=== PATIENT | male | born 1950 | race Caucasian/White ===

== ENCOUNTER → 2017-11-09 | Outpatient (CLI) | payer MEDICARE ==
[~2017-11-09] MED LIST: ATOR-1 PO; ATOR20TA22 PO; ATOR40TA69 PO; AZIT-1 PO; CALC200T27 PO; CHOL200038 PO; CHOL500025 PO; CRAN200C5 PO; DIPH-911 PO; FLUT16SP19 NS; FLUT16SP20 NS; GLUC-198 PO; HYDR-385 PO; HYDR200T42 PO; LEVO-85 PO; METH500T6 PO; MULT-27 PO; MULT1CAP41 PO; MULT1TAB54 PO; MYCO500T28 PO; NIAC50TA13 PO; OMEG300C PO; OMEG500C7 PO; OMEP-114 PO; PRED20TA6 PO; ROS10 PO; ROSU20TA13 PO; SULF-197 PO; TRAM-420 PO; [UNRECOGNIZED DRUG - OTHER] PO
[2017-11-09 16:36] LABS: PLATELET COUNT, AUTOMATED 182 K/uL (150-450)
== END ==
LOC: LAB 16:22
PROVIDERS: ATTEND Physician Assistant Medical
DX: M05.79 Rheumatoid arthritis with rheumatoid factor of multiple sites without organ or systems involvement (principal); Z79.899 Other long term (current) drug therapy; M33.20 Polymyositis, organ involvement unspecified
CPT/HCPCS: 36415; 82040; 82247; 82310; 82374; 82435; 82565; 82947; 84075; 84132; 84155; 84295; 84450; 84460; 84520; 85025; 85651; 86140

== ENCOUNTER → 2017-12-14 | Outpatient (CLI) | payer MEDICARE ==
[~2017-12-14] MED LIST changes: +BENZ100C4 PO; +RIT100I IV
== END ==
LOC: LAB 09:53
PROVIDERS: ATTEND Emergency Medicine
DX: Z12.5 Encounter for screening for malignant neoplasm of prostate (principal); E78.5 Hyperlipidemia, unspecified; E55.9 Vitamin D deficiency, unspecified
CPT/HCPCS: 36415; 82306; 82465; 83718; 84153; 84478

== ENCOUNTER → 2017-12-14 | Outpatient (CLI) | payer MEDICARE ==
[2017-12-14 10:24] LABS: PLATELET COUNT, AUTOMATED 220 K/uL (150-450)
== END ==
LOC: LAB 09:55
PROVIDERS: ATTEND Physician Assistant Medical
DX: M05.79 Rheumatoid arthritis with rheumatoid factor of multiple sites without organ or systems involvement (principal); M33.20 Polymyositis, organ involvement unspecified; Z79.899 Other long term (current) drug therapy
CPT/HCPCS: 36415; 82040; 82247; 82310; 82374; 82435; 82565; 82947; 84075; 84132; 84155; 84295; 84450; 84460; 84520; 85025; 85651; 86140

== ENCOUNTER → 2018-02-27 | Outpatient (CLI) | payer MEDICARE ==
[2018-02-27 16:04] LABS: PLATELET COUNT, AUTOMATED 204 K/uL (150-450)
== END ==
LOC: LAB 15:46
PROVIDERS: ATTEND Physician Assistant Medical
DX: M05.79 Rheumatoid arthritis with rheumatoid factor of multiple sites without organ or systems involvement (principal); Z79.899 Other long term (current) drug therapy; M33.20 Polymyositis, organ involvement unspecified
CPT/HCPCS: 36415; 82040; 82247; 82310; 82374; 82435; 82565; 82947; 84075; 84132; 84155; 84295; 84450; 84460; 84520; 85025; 85651; 86140

== ENCOUNTER → 2018-05-07 | Outpatient (CLI) | payer MEDICARE ==
[~2018-05-07] MED LIST changes: -ROSU20TA13 PO; +ROSU20TA5 PO
[2018-05-07 08:47] LABS: PLATELET COUNT, AUTOMATED 190 K/uL (150-450)
== END ==
LOC: LAB 08:32
PROVIDERS: ATTEND Physician Assistant Medical
DX: M05.79 Rheumatoid arthritis with rheumatoid factor of multiple sites without organ or systems involvement (principal); M33.20 Polymyositis, organ involvement unspecified; Z79.899 Other long term (current) drug therapy
CPT/HCPCS: 36415; 82040; 82247; 82310; 82374; 82435; 82565; 82947; 84075; 84132; 84155; 84295; 84450; 84460; 84520; 85025; 85651; 86140

== ENCOUNTER → 2018-06-14 | Outpatient (CLI) | payer MEDICARE | LOC: RESP 01:12 | PROVIDERS: ATTEND Internal Medicine | DX: J98.4 Other disorders of lung (principal) | CPT/HCPCS: 94060; 94726; 94729 ==

== ENCOUNTER → 2018-06-28 | Outpatient (CLI) | payer MEDICARE ==
--- NOTE | 2018-06-28 17:17 | RADIOLOGY IMAGING REPORT ---
FACILITY: [facility] PATIENT NAME: Chai Santiago : 1950 MR: [id number] V: [id number] EXAM DATE: ORDERING PHYSICIAN: FELICITY MALDONADO TECHNOLOGIST: [place] [facility] [place] Patient: Chai Santiago : 1950 Visit/Account:[id number] Date of Sevice: 06/28/2018 CHEST W/O CONTRAST Provided history: Organizing pneumonia Additional pertinent history: none TECHNIQUE: Spiral scan was obtained from the lower neck through the lung bases without intravenous co ntrast. Source images were reformatted in the coronal and sagittal planes. Additional series performed today: none One of the following dose optimization techniques was utilized in the performance of this exam: Autom ated exposure control; adjustment of the mA and/or kV according to the patient's size; or use of an i terative reconstruction technique. Specific details can be referenced in the facility's radiology CT exam operational policy. COMPARISON STUDIES: CT chest 05/02/14 FINDINGS: Lungs / pleura / wali: Multifocal subpleural patchy areas of groundglass attenuation prior study sharp ve nearly fully cleared on the current exam. Residual is of lower attenuation and more reticular in n ature. At many sites, I can appreciate some subpleural sparing. Patchy confluent density on the prior study in the lung bases has resolved as well. There is moderate residual traction bronchiectasis both posterior lung bases and there is some reticulation in the sub pleural margin again with sparing directly deep to the pleura. There is no honeycombing. Additional b ronchiectasis noted in the right middle lobe, mildly progressive from prior. No significant peribronchovascular thickening. There is no hilar or mediastinal adenopathy. No pleural thickening or fluid. No esophageal dilation. Small hiatal hernia noted. Lower neck: negative Mediastinum: negative Heart / pericardium: negative Vessels: Moderate proximal and mid LAD calcification. Lymph nodes: negative Body wall: negative Upper abdomen: negative Bones: negative IMPRESSION: 1. Although the study is not performed as a high-resolution technique, it is sufficient to demonstrat e evidence of interstitial lung disease. The pattern is more consistent with NSIP then UIP. Appearanc e of the previous study with suggest [employer] which is now improved. 2. Bronchiectasis both lung bases and right middle lobe is progressive from prior. Report Dictated By: Raji Gomez MD at 06/28/2018 5:03 PM Report E-Signed By: Raji Gomez MD at 06/28/2018 5:13 PM WSN:[id number]
== END ==
LOC: CT 04:00
PROVIDERS: ATTEND Internal Medicine
DX: J84.89 Other specified interstitial pulmonary diseases (principal)
CPT/HCPCS: 71250

== ENCOUNTER → 2018-07-08 | Outpatient (CLI) | payer MEDICARE ==
[2018-07-08 12:02] LABS: PLATELET COUNT, AUTOMATED 183 K/uL (150-450)
== END ==
LOC: LAB 11:40
PROVIDERS: ATTEND Physician Assistant Medical
DX: Z11.1 Encounter for screening for respiratory tuberculosis (principal); M05.79 Rheumatoid arthritis with rheumatoid factor of multiple sites without organ or systems involvement; M33.20 Polymyositis, organ involvement unspecified; Z79.899 Other long term (current) drug therapy
CPT/HCPCS: 36415; 82040; 82247; 82310; 82374; 82435; 82565; 82947; 84075; 84132; 84155; 84295; 84450; 84460; 84520; 85025; 85651; 86140; 86480

== ENCOUNTER → 2018-10-28 | Outpatient (CLI) | payer MEDICARE ==
--- NOTE | 2018-10-28 16:28 | RADIOLOGY IMAGING REPORT ---
FACILITY: [facility] PATIENT NAME: Chai Santiago : 1950 MR: [id number] V: [id number] EXAM DATE: ORDERING PHYSICIAN: MARYJANE RASMUSSEN TECHNOLOGIST: Location: [facility] Patient: Chai Santiago : 1950 Visit/Account:[id number] Date of Sevice: 10/28/2018 CHEST PA LAT History: Patient reports no chest pain. "heard something in the lungs" FINDINGS: Comparison studies: Comparison radiograph 07/20/2015 Tubes and Lines: None. Lungs and pleura: There is a left basilar interstitial opacities improved from 2015. Right lung un remarkable. Mediastinum: normal. Cardiac silhouette: normal . Osseous structures: Unremarkable for age . IMPRESSION: Nonspecific left basilar atelectasis, scar, or early pneumonia. Report Dictated By: Luis Crane MD at 10/28/2018 4:22 PM Report E-Signed By: Luis Crane MD at 10/28/2018 4:24 PM WSN:[email or web address] [id number]
== END ==
LOC: RAD 15:35
PROVIDERS: ATTEND Technician/Technologist Ophthalmic
DX: J98.11 Atelectasis (principal); J18.9 Pneumonia, unspecified organism
CPT/HCPCS: 71046

== ENCOUNTER → 2018-12-23 | Outpatient (CLI) | payer MEDICARE ==
[2018-12-23 16:23] LABS: PLATELET COUNT, AUTOMATED 196 K/uL (150-450)
[2018-12-23 16:39] LABS: LDL CHOLESTEROL 38 mg/dl
== END ==
LOC: LAB 15:54
PROVIDERS: ATTEND Emergency Medicine
DX: E78.5 Hyperlipidemia, unspecified (principal)
CPT/HCPCS: 36415; 82306; 85025; G0103; 82040; 82247; 82310; 82374; 82435; 82465; 82565; 82947; 83718; 84075; 84132; 84153; 84155; 84295; 84450; 84460; 84478; 84520

== ENCOUNTER → 2018-12-23 | Outpatient (REF) | payer MEDICARE | LOC: ZZSENDIN 17:06 | PROVIDERS: ATTEND Physician Assistant Medical | DX: M05.79 Rheumatoid arthritis with rheumatoid factor of multiple sites without organ or systems involvement (principal); M33.20 Polymyositis, organ involvement unspecified; Z79.899 Other long term (current) drug therapy | CPT/HCPCS: 85651; 86140 ==

== ENCOUNTER → 2019-03-31 | Outpatient (CLI) | payer MEDICARE | LOC: LAB 15:00 | PROVIDERS: ATTEND Physician Assistant Medical | DX: M05.79 Rheumatoid arthritis with rheumatoid factor of multiple sites without organ or systems involvement (principal); M33.20 Polymyositis, organ involvement unspecified; Z79.899 Other long term (current) drug therapy | CPT/HCPCS: 82040; 82247; 82310; 82374; 82435; 82565; 82947; 84075; 84132; 84155; 84295; 84450; 84460; 84520; 85027; 85651 ==

== ENCOUNTER → 2019-03-31 | Outpatient (CLI) | payer MEDICARE | LOC: LAB 15:03 | PROVIDERS: ATTEND Urology | DX: N40.1 Benign prostatic hyperplasia with lower urinary tract symptoms (principal) | CPT/HCPCS: 36415; 84153 ==